=== PATIENT | female | born 1985 | race Caucasian/White ===

== ENCOUNTER 2019-05-13 06:01 | Observation (INO) | payer OTHER ==
[2019-05-13] MEDS: CEFAZOLIN 2 GM/50 ML (PMX) 50 ML IVPB ×3 (05:30→23:10)
[2019-05-13] MEDS ORDERED: POLYMYXIN/BACITRACIN 1L IRRIG (06:52)
[2019-05-13] MEDS: LACTATED RINGER'S 1,000 ML IV ×3 (07:25→17:20)
[2019-05-13] MEDS ORDERED: MIDAZOLAM 1 MG/ML 2 ML INJ (07:45)
[2019-05-13] MEDS ORDERED: FENTAnyl 50 MCG/ML VIAL (07:45)
[2019-05-13] MEDS ORDERED: morphine SULFATE/PF (10 MG/10 ML) INJ (07:48)
[2019-05-13] MEDS: BUPIVACAINE 0.5%/EPI (SDV) 30 ML INJ (08:29)
[2019-05-13] MEDS ORDERED: BUPIVACAINE 0.5%/EPI (SDV) 30 ML INJ (09:51)
[2019-05-13] MEDS ORDERED: CEFAZOLIN 1 GM INJ (11:03)
[2019-05-13] MEDS ORDERED: LIDOCAINE 2% (SDV) 5 ML INJ (11:03)
[2019-05-13] MEDS ORDERED: PROPOFOL 20 ML (11:03)
[2019-05-13] MEDS ORDERED: ONDANSETRON 4 MG INJ (11:03)
[2019-05-13] MEDS ORDERED: ROCURONIUM 50 MG INJ (11:03)
[2019-05-13] MEDS ORDERED: METOCLOPRAMIDE 10 MG INJ (11:03)
[2019-05-13] MEDS ORDERED: ONDANSETRON INJ 6 MG in DEXTROSE 5% 50 ML IVPB (11:30)
[2019-05-13] MEDS ORDERED: FENTAnyl 50 MCG/ML VIAL IV (11:30)
[2019-05-13] MEDS ORDERED: NALOXONE (0.4 MG/ML) INJ IV (11:30)
[2019-05-13] MEDS ORDERED: DIPHENHYDRAMINE 50 MG INJ IV (11:30)
[2019-05-13] MEDS ORDERED: KETOROLAC 30 MG INJ IV (11:30)
[2019-05-13] MEDS ORDERED: HYDROmorphONE 1 MG/5 ML IV SYRINGE IV ×2 (11:30)
[2019-05-13] MEDS ORDERED: OXYCODONE/ACETAMINOPHEN (5/325) TAB PO (11:30)
[2019-05-13] MEDS ORDERED: ZOLPIDEM 5 MG TAB PO (11:30)
[2019-05-13] MEDS: ONDANSETRON 4 MG INJ IV (11:33)
[2019-05-13] MEDS: MEPERIDINE 25 MG INJ IV (11:33)
[2019-05-13] MEDS: METOCLOPRAMIDE 10 MG INJ IV ×2 (13:21→17:37)
[2019-05-13] MEDS: METOCLOPRAMIDE 10 MG TAB PO (13:23)
[2019-05-13] MEDS: KETOROLAC 30 MG INJ IV ×3 (13:28→23:50)
[2019-05-13] MEDS ORDERED: CEFAZOLIN 1 GM/50 ML (PMX) 50 ML IVPB (14:00)
[2019-05-14] MEDS: METOCLOPRAMIDE 10 MG INJ IV ×4 (00:05→17:49)
[2019-05-14] MEDS: LACTATED RINGER'S 1,000 ML IV ×3 (03:20→10:48)
[2019-05-14 05:17] LABS: ADD MAN DIFF? NO
[2019-05-14 05:25] LABS: BASOPHILS % 0.3 % (0.0-2.0); EOSINOPHILS # 0.2 10^3/ul (0.0-0.5); EOSINOPHILS % 1.7 % (0.0-7.0); HEMATOCRIT 31.3 % (37.0-47.0); HEMOGLOBIN 10.3 g/dl (12.0-16.0); LYMPHOCYTES # 2.3 10^3/ul (0.8-2.9); MEAN CORPUSCULAR HEMOGLOBIN 32.1 pg (29.0-33.0); MEAN CORPUSCULAR HGB CONC 32.9 g/dl (32.0-37.0); MEAN CORPUSCULAR VOLUME 97.5 fl (82.0-101.0); MEAN PLATELET VOLUME 12.4 fl (7.4-10.4); MONOCYTE # 0.7 10^3/ul (0.3-0.9); MONOCYTES % 8.4 % (0.0-11.0); NEUTROPHIL # 5.5 10^3/ul (1.6-7.5); NEUTROPHILS % 63.3 % (39.0-77.0); PLATELET COUNT 201 10^3/UL (140-415); RED BLOOD COUNT 3.21 10^6/ul (4.20-5.40); RED CELL DISTRIBUTION WIDTH 12.3 % (11.5-14.5)
[2019-05-14 05:25] LABS: WHITE BLOOD COUNT 8.7 10^3/ul (4.8-10.8)
[2019-05-14] MEDS: CEFAZOLIN 2 GM/50 ML (PMX) 50 ML IVPB (05:43)
[2019-05-14 05:45] LABS: ANION GAP 5 (5-13); BLOOD UREA NITROGEN 9 mg/dl (7-20); CARBON DIOXIDE 28 mmol/L (21-31); CHLORIDE 108 mmol/L (97-110); CREATININE 0.82 mg/dl (0.44-1.00); SODIUM 141 mmol/L (135-144)
[2019-05-14] MEDS: KETOROLAC 30 MG INJ IV ×3 (05:47→17:48)
[2019-05-14] MEDS: HYDROCODONE/APAP (5/325) TAB PO ×2 (10:42→17:02)
[2019-05-14] MEDS: DIPHENHYDRAMINE 50 MG CAP PO (11:47)
== END 2019-05-14 20:54 | disposition home or self-care (01) ==
LOC: SDS 06:01 → REC 11:17 → MS1 17:07
DX: N83.202 Unspecified ovarian cyst, left side (principal); N80.1 Endometriosis of ovary; N93.9 Abnormal uterine and vaginal bleeding, unspecified; R32 Unspecified urinary incontinence; N81.6 Rectocele; N81.10 Cystocele, unspecified; N73.6 Female pelvic peritoneal adhesions (postinfective); N39.0 Urinary tract infection, site not specified; K59.00 Constipation, unspecified; N92.0 Excessive and frequent menstruation with regular cycle; D25.9 Leiomyoma of uterus, unspecified
CPT/HCPCS: 57260; 80051; 82565; 84520; 85025; 86850; 86900; 86901; 87086; 88104; 88305; 93005